=== PATIENT | male | born 1980 | race Two or more races ===

== ENCOUNTER 2018-08-14 20:45 | Emergency (ER) | payer MEDICAID, OTHER ==
[~2018-08-14] VITALS: Ht 180.3 cm; Wt 81.6 kg
[2018-08-14 20:53] VITALS: BP 156/96
[2018-08-14] MEDS ORDERED: cefTRIAXone SOD 1,000 MG VL IM ONE (22:00)
[2018-08-14] MEDS ORDERED: DEXAMETHASONE SOD PHOS 10MG/1ML VIAL INJ IM ONE (22:00)
== END 2018-08-14 22:43 | disposition home or self-care (01) ==
LOC: ER 20:50
DX: H66.93 Otitis media, unspecified, bilateral (principal)
CPT/HCPCS: 96372; 99283; J0696; J1100